=== PATIENT | female | born 1980 | race Hispanic/Latino ===

== ENCOUNTER 2016-08-04 09:22 | Emergency (ER) | payer BC ==
[~2016-08-04] VITALS: Ht 154.9 cm; Wt 72.0 kg
[~2016-08-04 09:22] MED LIST: ULTRAM50 M1 PO
[2016-08-04 09:54] LABS: HEMATOCRIT 38.5 % (37.0-47.0); HEMOGLOBIN 13.2 g/dl (12.0-16.0); IMMATURE GRANULOCYTES 0.5 % (0.0-1.0); MEAN CELL VOLUME 84.6 fL CALC (80.0-100.0); MEAN CORPUSCULAR HGB CONC 34.3 g/L CALC (32.0-36.0); NEUT# 4.63 thou/uL (2.00-7.15); RED BLOOD COUNT 4.55 mill/uL (4.20-5.60); RED CELL DISTRI WIDTH 11.9 % (11.5-15.5)
[2016-08-04 10:05] LABS: ALBUMIN 4.3 g/dL (3.2-5.0); ALKALINE PHOSPHATASE 72 u/l (38-126); ANION GAP 16 (6-22 (CALC)); BILIRUBIN, TOTAL 0.4 mg/dL (0.0-1.4); BUN 20 mg/dL (7-17); BUN/CREATININE RATIO 29 (12-20 (CALC)); CALCIUM 9.3 mg/dL (8.4-10.2); CARBON DIOXIDE 26 mmol/l (22-30); CHLORIDE 104 mmol/l (95-108); CREATININE 0.7 mg/dL (0.5-1.0); GFR > 60 ML/MIN (>=60 (CALC)); GFR FOR AFR.AMER. > 60 ML/MIN (>=60 (CALC)); GLUCOSE 115 mg/dL (65-105); POTASSIUM 4.1 mmol/l (3.5-5.1); SGOT/AST 20 u/l (14-36); SGPT/ALT 33 u/l (9-52); SODIUM 141 mmol/l (137-146)
[2016-08-04 10:16] LABS: MYOGLOBIN 15 ng/mL (0 - 62)
[2016-08-04] MEDS ORDERED: MECLIZINE25 MG PO (10:56)
[2016-08-04] MEDS ORDERED: ZOFRAN ODT4 MG PO (10:56)
[2016-08-04 11:00] VITALS: BP 109/74
== END 2016-08-04 11:11 | disposition home or self-care (01) | DRG 149 ==
LOC: ED 09:22
PROVIDERS: Emergency Medicine
DX: H81.10 Benign paroxysmal vertigo, unspecified ear (principal); R11.2 Nausea with vomiting, unspecified

== ENCOUNTER 2016-08-06 10:27 | Emergency (ER) | payer BC ==
[~2016-08-06] VITALS: Ht 154.9 cm; Wt 85.0 kg
[~2016-08-06 10:27] MED LIST changes: +MECLIZINE25 MG PO; +ZOFRAN ODT4 MG PO
[2016-08-06] MEDS ORDERED: LORTAB 5-325 MG1 TAB PO (11:06)
[2016-08-06] MEDS ORDERED: VALIUM5 MG PO (11:06)
[2016-08-06 11:15] VITALS: BP 128/70
== END 2016-08-06 11:15 | disposition home or self-care (01) | DRG 149 ==
LOC: ED 10:27
DX: R42 Dizziness and giddiness (principal); R51 Headache

== ENCOUNTER 2017-09-04 11:00 | Emergency (ER) | payer BC ==
[~2017-09-04] VITALS: Ht 154.9 cm; Wt 70.0 kg
[~2017-09-04 11:00] MED LIST changes: +LORTAB 5-325 MG1 TAB PO; +VALIUM5 MG PO
[2017-09-04] MEDS ORDERED: PYRIDIUM200 MG PO (12:27)
[2017-09-04] MEDS ORDERED: KEFLEX500 M1 PO (12:27)
[2017-09-04 12:40] VITALS: BP 112/71
== END 2017-09-04 12:40 | disposition home or self-care (01) | DRG 605 ==
LOC: ED 11:00
DX: S30.0XXA Contusion of lower back and pelvis, initial encounter (principal); W10.9XXA Fall (on) (from) unspecified stairs and steps, initial encounter; Y92.009 Unspecified place in unspecified non-institutional (private) residence as the place of occurrence of the external cause

== ENCOUNTER 2017-11-04 11:36 | Emergency (ER) | payer BC ==
[~2017-11-04] VITALS: Ht 154.9 cm; Wt 74.0 kg
[~2017-11-04 11:36] MED LIST changes: +KEFLEX500 M1 PO; +PYRIDIUM200 MG PO
[2017-11-04] MEDS ORDERED: CEPHALEXIN500 M1 PO (13:28)
[2017-11-04] MEDS ORDERED: CIPROFLOXACN500 MG PO (13:28)
[2017-11-04 13:45] VITALS: BP 112/75
== END 2017-11-04 13:45 | disposition home or self-care (01) | DRG 607 ==
LOC: ED 11:36
DX: S80.861A Insect bite (nonvenomous), right lower leg, initial encounter (principal); L03.115 Cellulitis of right lower limb; J45.909 Unspecified asthma, uncomplicated; W57.XXXA Bitten or stung by nonvenomous insect and other nonvenomous arthropods, initial encounter

== ENCOUNTER 2018-11-09 19:30 | Emergency (ER) | payer BC ==
[~2018-11-09] VITALS: Ht 154.9 cm; Wt 75.0 kg
[~2018-11-09 19:30] MED LIST changes: +CEPHALEXIN500 M1 PO; +CIPROFLOXACN500 MG PO
[2018-11-09] MEDS ORDERED: DOXYCYCL HYC100 MG PO (20:01)
[2018-11-09 20:10] VITALS: BP 132/90
[2018-11-09] MEDS ORDERED: LORAZEPAM0.5 MG PO (20:13)
[2018-11-09] MEDS ORDERED: TRAZODONE50 MG PO (20:13)
== END 2018-11-09 20:10 | disposition home or self-care (01) | DRG 603 ==
LOC: ED 19:30
PROC: 0H9KXZZ Drainage of Right Lower Leg Skin, External Approach (ICD-10-PCS; principal; 2018-11-09)
DX: L02.415 Cutaneous abscess of right lower limb (principal)

== ENCOUNTER 2019-09-15 19:51 | Emergency (ER) | payer OTHER ==
[~2019-09-15 19:51] MED LIST changes: +DOXYCYCL HYC100 MG PO; +LORAZEPAM0.5 MG PO; +TRAZODONE50 MG PO
[2019-09-15 21:51] LABS: URINE BILIRUBIN - DIPSTICK NEGATIVE (NEGATIVE); URINE BLOOD DIPSTICK NEGATIVE (NEGATIVE); URINE COLOR YELLOW; URINE GLUCOSE - DIPSTICK NEGATIVE (NEGATIVE); URINE KETONE NEGATIVE (NEGATIVE); URINE LEUK ESTERASE NEGATIVE (NEGATIVE); URINE NITRITE - DIPSTICK NEGATIVE (Negative); URINE PROTEIN - DIPSTICK NEGATIVE (NEG-TRACE); URINE SPECIFIC GRAVITY >=1.030; URINE UROBILINOGEN - DIPSTICK 0.2 E.U./dL (0.2)
[2019-09-15] MEDS ORDERED: ULTRAM50 M1 PO (23:06)
[2019-09-15 23:07] VITALS: BP 128/82
== END 2019-09-15 23:07 | disposition home or self-care (01) | DRG 914 ==
LOC: ED 19:51
PROVIDERS: Emergency Medicine
DX: S09.93XA Unspecified injury of face, initial encounter (principal); Y04.0XXA Assault by unarmed brawl or fight, initial encounter; Y92.009 Unspecified place in unspecified non-institutional (private) residence as the place of occurrence of the external cause

== ENCOUNTER 2019-12-18 16:16 | Emergency (ER) | payer OTHER ==
[~2019-12-18] VITALS: Ht 154.9 cm; Wt 72.7 kg
[2019-12-18] MEDS ORDERED: LIPITOR20 M1 PO (16:32)
[2019-12-18 18:02] VITALS: BP 115/74
== END 2019-12-18 18:02 | disposition home or self-care (01) | DRG 556 ==
LOC: ED 16:16
DX: M25.512 Pain in left shoulder (principal); R07.89 Other chest pain; V47.5XXA Car driver injured in collision with fixed or stationary object in traffic accident, initial encounter